=== PATIENT | female | born 1965 | race Caucasian/White ===

== ENCOUNTER 2018-10-29 02:50 | Inpatient (IN) | payer OTHER ==
[~2018-10-29] VITALS: Ht 162.7 cm; Wt 132.2 kg
[2018-10-29] VITALS (12 sets, daily range): BP systolic 104–155; BP diastolic 58–91; PULSE 81–94; TEMP 97.2–98.2
[~2018-10-29 02:50] MED LIST: ASPIRIN E.C. 8181 MG PO; GLUCOPHAGE500 MG/TAB PO; PRINZIDE 25 MG-1 TAB PO; SYNTHROID 0.0.025 MG PO; ZYRTEC 10MG10 MG PO
--- NOTE | 2018-10-29 03:40 | NUR ---
Pt arrived from [facility] via [facility] on stretcher at arrival. No distress noted. Pt denies pain or nausea. BS+. Reports BM yesterday. Respirations even and unlabored. Lungs clear. No edema noted. RAC INT. No needs noted at this time. VSS. Admission completed. Medications reviewed.
[2018-10-29] MEDS ORDERED: JANUMET 500 MG-1 TA1 PO (04:14)
[2018-10-29] MEDS ORDERED: JARDIANCE10 PO (04:15)
--- NOTE | 2018-10-29 04:38 | NUR ---
Dr. Dobbs called for orders. Orders received.
--- NOTE | 2018-10-29 05:29 | NUR ---
Pt resting with HOB elevated. Continues to deny pain and nausea since admission. No distress. No needs noted.
--- NOTE | 2018-10-29 07:15 | NUR ---
Report given to Luis Miguel PARK. Pt denies pain/nausea this AM. No needs noted.
[2018-10-29 07:51] LABS: BASO # 0.1 (0.0-0.2); BASO % 0.6 % (0.0-2.0); EOS # 0.1 (0.0-0.7); EOS % 1.1 % (0-4.0); GRAN # 6.9 (1.4-6.5); GRAN % 66.8 % (42.2-75.2); HEMATOCRIT 46.7 % (37.0-47.0); HEMOGLOBIN 14.5 g/dl (12.5-16.0); LYMPH # 2.4 (1.2-3.4); LYMPH % 23.4 % (20.0-51.0); MEAN CELL VOLUME 86 fl (80.0-100.0); MEAN CORPUSCULAR HEMOGLOBIN 27 pg (27.0-31.0); MEAN CORPUSCULAR HGB CONC 31 g/dl (33.0-37.0); MEAN PLATELET VOLUME 9.6 fl (7.4-10.4); MONO # 0.8 (0.1-0.6); MONO % 7.6 % (1.7-9.3); PLATELET COUNT 312 K/mm3 (130-400); RED BLOOD COUNT 5.43 M/mm3 (4.10-5.30); REDCELL DISTRIBUTION WIDTH-CV 14.4 % (11.5-14.5)
[2018-10-29 08:07] LABS: CALCIUM 9.2 mg/dL (8.4-10.2); CREATININE, serum 0.9 (0.52-1.25); POTASSIUM 4.3 mmol/L (3.4-5.0)
--- NOTE | 2018-10-29 10:21 | NUR ---
Initial visit; Patient thanked [facility] for looking in on her and offering God's blessings.
--- NOTE | 2018-10-29 14:47 | NUR ---
SW met with patient and to discuss discharge planning. Patient lives indepdently at home with her . Patient's PCP and pharmacy are on [facility]. Patient does not use any DME or home health. Patient does not have a DPOA and is not interested in completing one at this time. SW does not anticipate any discharge needs.
--- NOTE | 2018-10-29 15:00 | NUR ---
Pt off unit in bed for procedure
--- NOTE | 2018-10-29 20:00 | NUR ---
Arrives from PACU per bed. Is alert and oriented x3. Has IVF infusing to left wrist without redness or swelling. Connected to VS machine.
--- NOTE | 2018-10-30 00:10 | NUR ---
Patient up ambulating in hallway with one assist. Gait steady. Back to room, voids and back in bed. Has leaking from lower right lap site, new bandaid placed on site, abd. binder on. IVF infusing to left wrist without redness or swelling, is taking oral fluids well, will cap IVF after this bag is complete.
--- NOTE | 2018-10-30 00:15 | NUR ---
Medicated with Oxycodone 5mg po at this time for abdominal pain 12/01.
--- NOTE | 2018-10-30 01:00 | NUR ---
IVF capped, patient taking oral fluids well.
[2018-10-30 04:00] VITALS: BP 109/64; PULSE 71; TEMP 97.9
[2018-10-30 06:09] LABS: BASO # 0.1 (0.0-0.2); BASO % 0.6 % (0.0-2.0); EOS % 0.1 % (0-4.0); GRAN # 8.3 (1.4-6.5); GRAN % 79.1 % (42.2-75.2); LYMPH # 1.4 (1.2-3.4); LYMPH % 13.7 % (20.0-51.0); MEAN CELL VOLUME 86 fl (80.0-100.0); MEAN CORPUSCULAR HEMOGLOBIN 27 pg (27.0-31.0); MEAN CORPUSCULAR HGB CONC 31 g/dl (33.0-37.0); MEAN PLATELET VOLUME 9.8 fl (7.4-10.4); MONO # 0.6 (0.1-0.6); MONO % 6.1 % (1.7-9.3); PLATELET COUNT 288 K/mm3 (130-400); RED BLOOD COUNT 4.87 M/mm3 (4.10-5.30); REDCELL DISTRIBUTION WIDTH-CV 14.3 % (11.5-14.5)
[2018-10-30 06:22] LABS: ALBUMIN 3.6 gm/dL (3.5-5.0); BILIRUBIN,TOTAL 0.6 mg/dL (0.0-1.0); CALCIUM 8.8 mg/dL (8.4-10.2); CREATININE, serum 1.03 (0.52-1.25); POTASSIUM 4.7 mmol/L (3.4-5.0)
[2018-10-30 07:38] VITALS: BP 106/62; PULSE 65; TEMP 97.8
--- NOTE | 2018-10-30 09:30 | NUR ---
Patient alert and oriented, answers questions appropriately. See assessment. Abdomen soft, non tender, non distended. Bowel sounds active x4 quads. +Flatus. Lap sites well approximated, no drainage noted. No c/o at this time.
[2018-10-30 10:54] VITALS: BP 105/73; PULSE 70; TEMP 98
[2018-10-30 16:47] VITALS: BP 106/56; PULSE 85; TEMP 98.2
--- NOTE | 2018-10-30 21:00 | NUR ---
Patient in bed, has CPAP on. Takes HS meds at this time. Lap sites x4 to abdomen D/I, wearing abdominal binder. Denies need for any pain med stronger than the ES Tylenol. Reports voiding well, no BM but is passing flatus.
[2018-10-30 21:15] VITALS: BP 117/52; PULSE 80; TEMP 98
[2018-10-31 04:17] VITALS: BP 106/53; PULSE 83; TEMP 97.9
--- NOTE | 2018-10-31 04:47 | NUR ---
Patient in bed with CPAP on. Offers no concerns at this time. Denies need for pain meds at present time.
[2018-10-31 07:23] LABS: BASO % 0.3 % (0.0-2.0); EOS # 0.3 (0.0-0.7); GRAN # 4.3 (1.4-6.5); GRAN % 63.3 % (42.2-75.2); HEMATOCRIT 42.9 % (37.0-47.0); HEMOGLOBIN 13.3 g/dl (12.5-16.0); LYMPH # 1.6 (1.2-3.4); MEAN CELL VOLUME 88 fl (80.0-100.0); MEAN CORPUSCULAR HEMOGLOBIN 27 pg (27.0-31.0); MEAN CORPUSCULAR HGB CONC 31 g/dl (33.0-37.0); MEAN PLATELET VOLUME 9.7 fl (7.4-10.4); MONO # 0.6 (0.1-0.6); MONO % 9.1 % (1.7-9.3); PLATELET COUNT 279 K/mm3 (130-400); REDCELL DISTRIBUTION WIDTH-CV 14.5 % (11.5-14.5)
[2018-10-31 07:45] VITALS: BP 113/64; PULSE 80; TEMP 98.1
[2018-10-31 07:48] LABS: CREATININE, serum 0.81 (0.52-1.25); POTASSIUM 3.8 mmol/L (3.4-5.0)
--- NOTE | 2018-10-31 09:00 | NUR ---
Patient alert and oriented, answers questions appropriately. See assessment. Abdomen soft, non tender, non distended. Bowel sounds active x4 quads. +Flatus. Lap sites with edges well approximated, no drainage noted. No c/o pain or discomfort.
--- NOTE | 2018-10-31 12:10 | NUR ---
Discharge instructions reviewed with patient and family, verbalized understanding. Discharged via wheelchair to auto/home with family at 1210.
== END 2018-10-31 12:10 | disposition home or self-care (01) | DRG 336 ==
LOC: SURG 02:50
PROVIDERS: ADMIT Surgery
PROC: 0WQF4ZZ Repair Abdominal Wall, Percutaneous Endoscopic Approach (ICD-10-PCS; 2018-10-29)
PROC: 0DN84ZZ Release Small Intestine, Percutaneous Endoscopic Approach (ICD-10-PCS; 2018-10-29)
PROC: 0WPF4JZ Removal of Synthetic Substitute from Abdominal Wall, Percutaneous Endoscopic Approach (ICD-10-PCS; 2018-10-29)
PROC: 8E0W4CZ Robotic Assisted Procedure of Trunk Region, Percutaneous Endoscopic Approach (ICD-10-PCS; 2018-10-29)
PROC: 0DNU4ZZ Release Omentum, Percutaneous Endoscopic Approach (ICD-10-PCS; principal; 2018-10-29 15:00)
DX: K43.0 Incisional hernia with obstruction, without gangrene (principal); Z68.43 Body mass index [BMI] 50.0-59.9, adult; K66.0 Peritoneal adhesions (postprocedural) (postinfection); E66.01 Morbid (severe) obesity due to excess calories; I10 Essential (primary) hypertension; G47.33 Obstructive sleep apnea (adult) (pediatric); F32.9 Major depressive disorder, single episode, unspecified; E11.9 Type 2 diabetes mellitus without complications; Z99.81 Dependence on supplemental oxygen; Z79.84 Long term (current) use of oral hypoglycemic drugs; Z90.710 Acquired absence of both cervix and uterus; Z88.5 Allergy status to narcotic agent; Z88.0 Allergy status to penicillin
CPT/HCPCS: J0330; J0690; J1100; J1170; J1885; J2250; J2405; J2704; J2765; J3010; J7030

== ENCOUNTER 2019-02-16 15:29 | Inpatient (IN) | payer OTHER ==
[~2019-02-16] VITALS: Ht 162.6 cm; Wt 126.0 kg
[~2019-02-16 15:29] MED LIST changes: +JANUMET 500 MG-1 TA1 PO; +JARDIANCE10 PO; +PRINIVIL5 MG PO
[2019-03-11] VITALS (11 sets, daily range): BP systolic 134–146; BP diastolic 73–86; PULSE 65–81; TEMP 97.6–98.4
[2019-03-11] MEDS ORDERED: JARDIANCE25 (13:00)
[2019-03-11] MEDS ORDERED: TIROSINT125 MC1 PO (13:17)
[2019-03-11] MEDS ORDERED: PRINIVIL20 MG PO (13:17)
--- NOTE | 2019-03-11 16:10 | NUR ---
PATIENT ARRIVED TO ROOM 343 VIA BED FROM PACU. PATIENT IS DROWSY FROM SURGERY, BUT IS OTHERWISE A&OX4. POST-OP VSS. BOWEL SOUNDS HYPOACTIVE ALL FOUR QUADRANTS. PATIENT HAS NAUSEA AND DRY HEAVES WITHOUT ANY EPISODES OF EMESIS. ABDOMINAL LAP SITES X4 DRESSED WITH BANDAIDS AND ARE CD&I. ABDOMINAL MANUELA DRAIN TO BULB SUCTION WITH SMALL AMOUNTS OF BLOOD-TINGED DRAINAGE PRESENT IN BULB. MANUELA INCISION SITE DRESSED WITH A GAUZE AND TAPE DRESSING WITH SMALL AMOUNT OF BLOODY DRAINAGE PRESENT. POSITIVE PEDAL PULSES EQUAL BILATERALLY. PATIENT AMBULATED WITH STAFF TO BATHROOM AND VOIDED CLEAR YELLOW URINE. SCD'S TO BLE. IV FLUIDS INFUSING TO LEFT WRIST IV. CALL LIGHT WITHIN REACH. FAMILY PRESENT AT THE BEDSIDE. NO NEEDS AT THIS TIME.
--- NOTE | 2019-03-11 19:00 | NUR ---
Report received from XAVIER Bravo. PT in bed resting, tired but denies nausea, will continue to monitor.
--- NOTE | 2019-03-11 19:03 | NUR ---
REPORT GIVEN TO XAVIER KENNEDY.
--- NOTE | 2019-03-11 21:00 | NUR ---
Assessment hcarted. Pt doing better, resting quietly with CPAP in place. Abd soft, bowel sounds hypoactive but present. MANUELA draining SS to bulb suction. 4 lap sites covered with bandaids and CDI. Denies needs, PRN nausea nad pain meds given per request. Will continue to monitor.
[2019-03-12 04:10] VITALS: BP 146/82; PULSE 77; TEMP 98.7
--- NOTE | 2019-03-12 06:18 | NUR ---
Pt rested well overnight. Denies needs, has had some pain. Sitting up in bed, anticipating gastrograffen this am. able to drink all 8 oz of blue gatorade overnight and only required nausea meds once. Will give bedside shift report to nightshift nurse who will resume care.
--- NOTE | 2019-03-12 07:14 | NUR ---
Patient was taken to Radiology. IV fluid disconnected until patient comes back to the surgiccal floor.
[2019-03-12 07:17] VITALS: BP 152/67; PULSE 80; TEMP 99.1
--- NOTE | 2019-03-12 08:00 | NUR ---
PATIENT IS RESTING IN BED THIS MORNING. PATIENT IS DROWSY BUT AROUSES EASILY TO NAME. PATIENT IS A&OX4. VSS. BOWEL SOUNDS ACTIVE ALL FOUR QUADRANTS. PATIENT TOLERATING SMALL AMOUNTS OF CLEAR LIQUIDS. PATIENT HAS HAD SOME NAUSEA, BUT DENIES VOMITING. ABDOMINAL LAP SITES X4 DRESSED WITH BANDAIDS AND ARE CD&I. LEFT-SIDED ABDOMINAL MANUELA DRAIN TO BULB SUCTION WITH SANGUINEOUS DRAINAGE PRESENT IN BULB. MANUELA INCISION SITE DRESSED WITH GAUZE AND HYPAFIX AND IS CD&I. POSITIVE PEDAL PULSES EQUAL BILATERALLY. SCD'S TO BLE. IV FLUIDS INFUSING TO LEFT WRIST IV VIA PUMP. DAUGHTER PRESENT AT THE BEDSIDE. CALL LIGHT WITHIN REACH. PATIENT DENIES ANY OTHER NEEDS AT THIS TIME.
[2019-03-12 11:22] VITALS: BP 141/78; PULSE 64; TEMP 98.9
--- NOTE | 2019-03-12 13:57 | NUR ---
patient sitting on chair with call light in reach. family member visiting at thiss time, reported off to primary nurse.
--- NOTE | 2019-03-12 14:49 | NUR ---
SW met with patient, daughter, and to discuss discharge planning. Patient lives independently at home with her and works fulltime on [facility] [employer]. Patient's PCP is Sultana Blas NP. Patient recieves her medications from [facility] as well. Patient is independent with all ADLs and does not use any DME or home health services. Patient plans to return home with her and does not have any concerns. CHARITY does not anticipate any discharge needs.
--- NOTE | 2019-03-12 16:50 | NUR ---
PATIENTS LEFT WRIST INT DISCONTINUED PER PENDIN DISCHARGE. TIP INTACT. PATIENT TOLERATED WELL.
--- NOTE | 2019-03-12 17:05 | NUR ---
DISCHARGE INSTRUCTIONS REVIEWED WITH PATIENT AND . ALL QUESTIONS ANSWERED. PATIENT PERSONAL BELONGINGS GATHERED.
--- NOTE | 2019-03-12 17:19 | NUR ---
PATIENT TAKEN TO PERSONAL VEHICLE VIA WHEELCHAIR BY SURGICAL STAFF. PATIENT DISCHARGED.
== END 2019-03-12 17:19 | disposition home or self-care (01) | DRG 620 ==
LOC: INPTSU 03-11 11:27 → SURG 03-11 12:00
PROVIDERS: ADMIT Surgery
PROC: 0DB64Z3 Excision of Stomach, Percutaneous Endoscopic Approach, Vertical (ICD-10-PCS; principal; 2019-03-11 13:30)
DX: E66.01 Morbid (severe) obesity due to excess calories (principal); K43.6 Other and unspecified ventral hernia with obstruction, without gangrene; E11.9 Type 2 diabetes mellitus without complications; G47.33 Obstructive sleep apnea (adult) (pediatric); F32.9 Major depressive disorder, single episode, unspecified; I10 Essential (primary) hypertension; Z87.442 Personal history of urinary calculi; Z68.43 Body mass index [BMI] 50.0-59.9, adult; Z90.49 Acquired absence of other specified parts of digestive tract; Z90.710 Acquired absence of both cervix and uterus; Z88.5 Allergy status to narcotic agent; Z88.8 Allergy status to other drugs, medicaments and biological substances; Z91.013 Allergy to seafood
CPT/HCPCS: J0690; J1100; J1200; J1885; J2405; J2704; J2710; J3010; J7030

== ENCOUNTER → 2019-02-18 | Outpatient (CLI) | payer OTHER | LOC: LIGHT 08:54 | DX: Z01.818 Encounter for other preprocedural examination (principal); E66.01 Morbid (severe) obesity due to excess calories; Z68.43 Body mass index [BMI] 50.0-59.9, adult; Z71.3 Dietary counseling and surveillance ==

== ENCOUNTER → 2019-03-23 | Outpatient (CLI) | payer OTHER ==
[~2019-03-23] VITALS: Ht 162.6 cm; Wt 123.8 kg
[~2019-03-23] MED LIST changes: +JARDIANCE25; +PRINIVIL20 MG PO; +TIROSINT125 MC1 PO
[2019-03-23 16:18] VITALS: BP 124/90; PULSE 82
== END ==
LOC: LIGHT 14:13
DX: E11.65 Type 2 diabetes mellitus with hyperglycemia (principal); Z98.84 Bariatric surgery status; Z68.42 Body mass index [BMI] 45.0-49.9, adult; Z71.3 Dietary counseling and surveillance

== ENCOUNTER → 2019-05-18 | Outpatient (CLI) | payer OTHER ==
[~2019-05-18] VITALS: Ht 162.6 cm; Wt 117.0 kg
[~2019-05-18] MED LIST changes: +CALCIUM 600 PLU1 TAB PO; +MULTIVITAMIN FO1 CAP PO; +SYNTHROID0.112 MG/T PO; -TIROSINT125 MC1 PO
[2019-05-18 14:47] VITALS: BP 120/86; PULSE 60
== END ==
LOC: LIGHT 04-20 13:38
DX: E11.65 Type 2 diabetes mellitus with hyperglycemia (principal); E66.01 Morbid (severe) obesity due to excess calories; Z98.84 Bariatric surgery status; Z68.42 Body mass index [BMI] 45.0-49.9, adult; Z71.3 Dietary counseling and surveillance

== ENCOUNTER → 2019-09-07 | Outpatient (CLI) | payer OTHER ==
[~2019-09-07] VITALS: Ht 162.6 cm; Wt 114.3 kg
[~2019-09-07] MED LIST changes: +SYNTHROID0.1 MG/TAB PO; -SYNTHROID0.112 MG/T PO
[2019-09-07 16:13] VITALS: BP 140/80; PULSE 84
== END ==
LOC: LIGHT 11:08
DX: Z68.41 Body mass index [BMI] 40.0-44.9, adult (principal); Z98.84 Bariatric surgery status; E11.65 Type 2 diabetes mellitus with hyperglycemia
CPT/HCPCS: G0463